=== PATIENT | female | born 1950 | race Caucasian/White ===

== ENCOUNTER 2020-07-28 09:27 | Day surgery (SDC) | payer OTHER ==
[~2020-07-28] VITALS: Ht 165.1 cm; Wt 73.6 kg
[~2020-07-28 09:27] MED LIST: ALPR1 PO; CLIN300 PO; HYDACE5; MECL25 PO
--- NOTE | 2020-07-28 10:03 | NUR ---
Ambulatory in Day Surgery Patient states colon prep results clear. Patient confirms NPO status and agrees with scheduled surgery. Lungs clear T/O to Auscultation. History, Chart, Medications and Allergies reviewed before start of procedure. TO RESTROOM PRIOR TO PROCEDURE.
--- NOTE | 2020-07-28 10:40 | NUR ---
07/28/20 1040 Estee Rodrigez History, Chart, Medications and Allergies reviewed before start of procedure. Patient confirms NPO status and agrees with scheduled surgery. 3-LEAD EKG REVIEWED WITH PHYSICIAN PRIOR TO START OF PROCEDURE. MONITOR INTACT WITH CONTINUOUS PULSE OXIMETRY AND INTERMITTENT BP. PATIENT DETERMINED TO BE ASA APPROPRIATE FOR PROPOFOL SEDATION PRIOR TO START OF PROCEDURE BY DR. CORRIGAN.
--- NOTE | 2020-07-28 11:12 | NUR ---
PT AWAKE, ALERT UPON ARRIVAL TO STEP DOWN FROM SCOPE ROOM. SIPPING ON CLEAR LIQUIDS AT THIS TIME. TOLERATING WELL.
--- NOTE | 2020-07-28 11:23 | NUR ---
REVIEWED DC INSTRUCTIONS WITH PATIENT WHO VERBALIZES UNDERSTANDING OF ALL. IV DC TIP INTACT. PT DRESSED SELF WITHOUT DIFFICULTY.
== END 2020-07-28 22:46 | disposition home or self-care (01) ==
LOC: ORSCMMR 09:27 → ORD 10:30 → ORSCMMR 10:30
PROVIDERS: Internal Medicine Gastroenterology
PROC: 0DBL8ZX Excision of Transverse Colon, Via Natural or Artificial Opening Endoscopic, Diagnostic (ICD-10-PCS; principal; 2020-07-28 10:30)
PROC: 0DBM8ZX Excision of Descending Colon, Via Natural or Artificial Opening Endoscopic, Diagnostic (ICD-10-PCS; principal; 2020-07-28 10:30)
PROC: 0DBN8ZX Excision of Sigmoid Colon, Via Natural or Artificial Opening Endoscopic, Diagnostic (ICD-10-PCS; principal; 2020-07-28 10:30)
DX: Z12.11 Encounter for screening for malignant neoplasm of colon (principal); Z86.010 Personal history of colon polyps; Z80.0 Family history of malignant neoplasm of digestive organs; D12.3 Benign neoplasm of transverse colon; D12.4 Benign neoplasm of descending colon; D12.5 Benign neoplasm of sigmoid colon; I10 Essential (primary) hypertension
CPT/HCPCS: 88305; J2704; J7120